=== PATIENT | female | born 1960 | race Caucasian/White ===

== ENCOUNTER 2017-02-25 07:57 | Inpatient (IN) ==
[2017-02-25] MEDS ORDERED: CeFAZolin Syr 2,000MG/20 ML 2,000 MG/20 ML SYRINGE IVPB ONE (08:19)
[2017-02-25] MEDS ORDERED: Lidocaine -MPF 1% 2 ML VIAL ID ONE (08:19)
[2017-02-25] MEDS ORDERED: *HR* Propofol 200 MG/20 ML VIAL IVP ONE (08:39)
[2017-02-25] MEDS ORDERED: *HR* FentaNYL (PF) 100 MCG/2 ML VIAL ONE (08:39)
[2017-02-25] MEDS ORDERED: Lidocaine -MPF 2% 2 ML VIAL ONE (08:40)
[2017-02-25] MEDS ORDERED: *HR* Succinylcholine 200 MG/10 ML VIAL IVP ONE ×2 (08:41→08:56)
[2017-02-25] MEDS ORDERED: *HR* Rocuronium Bromide 50 MG/5 ML VIAL ONE ×2 (08:41→08:56)
--- NOTE | 2017-02-25 08:45 | Anesthesia Evaluation PreOp ---
Date of Encounter: 02/25/17 Time of Encounter: 08:42 - Past History Planned Operation: Open repair hiatal hernia, aminata, mult hernia repairs Cardiac History: Denies any Significant Hx Pulmonary History: OTILIA Dx (does not use CPAP) LABOR RELATIONS OR PERSONNEL NEGOTIATOR History: Other (depression, migraines, hx uterine cancer) Other Medical History: GERD, Other (hx septic shock in 2015 - multiple organ failure (resolved)) Anesthesia History: No Prior Anesthetic Complications, Past Anesthesia (left TKR , right shoulder, hernia repair, EWELINA/BSO, colectomy/colostomy, colostomy reversal, EGD/colonoscopy, sinus surgery) Alcohol Use: occasionally Drug use: none Medications and Allergies Omeprazole [PriLOSEC] 40 mg PO BID 04/19/15 [History] Promethazine [Phenergan] 25 mg PO Q8H PRN 01/14/16 [History] Amitriptyline [Elavil] 10 mg PO HS 02/25/17 [History] Docusate [Colace] 02/25/17 [History] LORazepam [Ativan] 0.5 mg PO TID 02/25/17 [History] Magnesium Citrate [Citroma] 296 ml PO 02/25/17 [History] Magnesium Hydroxide [Milk of Magnesia] 5 ml PO PRN PRN 02/25/17 [History] Polyethylene Glycol 3350 [MiraLAX] 17 gm PO DAILY 02/25/17 [History] 3 Allergy/AdvReac Type Severity Reaction Status Date / Time No Known Allergies Allergy Verified 02/25/17 08:25 - Meds/Allergy Pre-op Review Medications Reviewed: Yes Allergies Reviewed: Yes Beta Blockers on Current Med List: No Anesthesia Results - Labs Laboratory Tests 02/16/17 02/16/17 16:25 16:25 WBC 8.1 Hgb 14.1 Hct 42.8 Plt Count 246 Sodium 139 Potassium 4.0 Chloride 101 Carbon Dioxide 28 BUN 11 Creatinine 0.88 Est GFR ( Amer) > 60 Est GFR (Non-Af Amer) > 60 BUN/Creatinine Ratio 13 - Imaging EKG: report reviewed, image reviewed (SR) Anesthesia Exam Last Vital Signs Temp 97.9 F 02/25/17 08:27 Pulse 66 02/25/17 08:27 Resp 18 02/25/17 08:27 BP 130/77 02/25/17 08:27 Pulse Ox 96 02/25/17 08:27 Weight: 98 kg NPO (# of Hours): > 8 hrs - HEENT Pupil (Motor): Pupils equal, EOMI Mallampati: III Teeth: Normal Oral Opening: Greater than 3 - LABOR RELATIONS OR PERSONNEL NEGOTIATOR LOC: Oriented LABOR RELATIONS OR PERSONNEL NEGOTIATOR Motor: Normal RUE, Normal LUE, Normal RLE, Normal LLE, Normal Face - Cardiac Rhythm: Regular Murmur: None - Pulmonary Breath Sounds: bilateral Clear Respiratory Effort: Symmetrical Anesthesia Assess/Plan ASA Score: 3 Modified Cale Scale for Level of Consciousness: Cooperative, oriented, and tranquil Anesthetic Plan: General Monitoring Plan: Standard Monitors Recovery Plan: PACU
[2017-02-25] MEDS: Ringers Solution, Lactated 1,000 ML IVC SCH ×2 (08:55→12:15)
[2017-02-25] MEDS ORDERED: *HR* Phenylephrine 10 MG/ML VIAL ONE (08:56)
[2017-02-25] MEDS ORDERED: Lidocaine -MPF 4% 5 ML AMPUL ONE (08:56)
[2017-02-25] MEDS ORDERED: *HR* Midazolam HCl 2 MG/2 ML VIAL ONE (08:56)
[2017-02-25] MEDS ORDERED: Bupivacaine/EPI 1:200k 0.25%PF 30 ML VIAL ONE (09:00)
--- NOTE | 2017-02-25 09:01 | History & Physical Report ---
Date of Encounter: 02/25/17 Time of Encounter: 09:00 24 Hour HP Update - Instructions Instructions: If the History and Physical is less than 30 days old and was completed prior to A.M. admission and or procedure and has NOT been updated on calendar day of procedure please complete this update prior to performing procedure. - Update Patient reports changes in Medical Condition: No Changes in examination, assessment, or condition: No Changes in Medication: No Preop tests/diagnostics Reviewed: Yes Surgery Remains Indicated: Yes Consent for Planned Operative Procedure(s) Verified: Yes - Pre-Operative Checklist Preoperative Checklist Indicated: Yes Prophylactic Antibiotic Ordered: Yes Home Medications Include Beta Anitha: No Is VTE Prophylaxis Indicated?: Yes
[2017-02-25] MEDS ORDERED: *HR* Remifentanil 2 MG VIAL IVP ONE (09:45)
[2017-02-25] MEDS ORDERED: *HR* Promethazine 25 MG/ML VIAL IVP PRN (09:55)
[2017-02-25] MEDS ORDERED: Dexamethasone 4 MG/ML VIAL IVP ONE (09:55)
[2017-02-25] MEDS ORDERED: Ondansetron 4 MG/2 ML VIAL IVP ONE (09:55)
[2017-02-25] MEDS ORDERED: Acetaminophen IV 1,000 MG/100 ML INFUS..BTL ONE (10:33)
[2017-02-25] MEDS ORDERED: Neostigmine Methylsulfate 3 MG/3 ML SYRINGE ONE (10:49)
[2017-02-25] MEDS ORDERED: Ketorolac 30 MG/ML VIAL ONE (10:50)
[2017-02-25] MEDS ORDERED: *HR* HYDROmorphone 2 MG/ML SYRINGE ONE (10:58)
--- NOTE | 2017-02-25 11:50 | Operative Note ---
Date of procedure: 02/25/17 Pre-op diagnosis: #1 paraesophageal hernia with #2 multiple incisional hernias Post-op diagnosis: same Procedure: #1 repair of paraesophageal hiatal hernia #2 Kendal fundoplication #3 repair of 4 incisional hernias (fenestrated midline) Anesthesia: SALOMÓN Surgeon: Augustine Mercedes Estimated blood loss (cc): 50 Specimen: Hernia sacs Condition: stable Disposition: PACU Procedure in Detail: After informed consent the patient was taken to the major operative suite and placed in supine position given adequate general endotracheal anesthesia. Gaviria catheter was placed. The abdomen was prepped and draped in sterile fashion utilizing ChloraPrep standard draping techniques. Timeout was taken. The patient was identified. I made a vertical midline incision from xiphoid to just below the umbilicus. I encountered 2 large hernias one above the umbilicus 1 just a low the umbilicus. The hernia sacs were dissected free from the surrounding subcutaneous tissue. I opened the hernia sacs there were no adhesions inside the sacs sacs were resected at the level of the fascia. There was a small strip of fascia between 2 hernias and this was divided. There is a third hernia very close inferiorly again the hernia sac was removed and the small strip of fascia was divided. There was a gap of about 4-5 cm of intact fascia many very small inferior hernia. I dissected the hernia sac free from the subcutaneous tissue and resected it and I closed the fascia with interrupted 0 Nurolon. Attention was then turned to the upper abdomen. There are some mild anterior abdominal wall adhesions that were divided with electrocautery. About one third of the stomach was in the chest. I was able to reduce the stomach out of the chest. There were significant adhesions between the greater curvature in the mediastinum. These will need to be addressed. I then mobilized the lateral segment of the left lobe of the liver and retract this inferiorly and toward the right. There were 2 layers of hernia sac anteriorly I divided both layers of hernia sac. The esophagus was positively identified at all times with a lighted bougie. I dissected the right sharon of the diaphragm. I turned my attention to the left crura of the diaphragm. This was the most complex dissection. There were extensive adhesions between the mediastinum and the hernia sac which was attached to the greater curvature. I made a meticulous dissection along the diaphragm completely exposing the left crura of the diaphragm. There were still extensive adhesions between the left sharon of the diaphragm in the esophagus attached the mediastinum to the backside of the greater curvature area these were all meticulously divided with careful anterior retraction of the esophagus. The esophagus was positively identified at all times. Once all the adhesions between the greater curvature and the mediastinum were divided the right and left crura of the diaphragm were easily identified. I repaired the hiatal hernia with 3 stitches of 2-0 Ethibond with pledgets. This gave an excellent technical result and perfect tension. The short gastric vessels of the greater curvature were then divided with 10 mm clips of the spleen side and Harmonic scalpel on the gastric side. There were greatly elongated from long- term prolapse in the mediastinum. Once the greater curvature was mobilized the greater curvature was brought behind the gastroesophageal junction and Kendal fundoplication was performed with 3 stitches of 2-0 Ethibond with pledgets. I placed 2 shoulder stitches one on the right and one on the left between the Kendal in the diaphragm to secure the wrap. This gave an excellent technical result area I then closed the midline with interrupted 0 Nurolon stitches using [place] tissue only. There was some tension in the fascia above the umbilicus however I felt this was acceptable for closure. Midline closure was completed all hernias were repaired only [place] tissue was used. The skin was reapproximated with interrupted Vicryl and skin clips.
[2017-02-25] MEDS: *HR* HYDROmorphone (PF) 1 MG/ML SYRINGE IVP PRN ×5 (12:24→22:34)
--- NOTE | 2017-02-25 12:51 | Anesthesia Evaluation Post Op ---
Date of Encounter: 02/25/17 Time of Encounter: 12:50 - Vital Signs Vital Signs: Vital Signs/O2 Sat/Glucose, Most Current Temp Pulse Resp BP Pulse Ox 02/25/17 12:41 98.6 F 60 12 139/79 95 02/25/17 12:31 98.6 F 77 15 141/78 96 02/25/17 12:21 80 11 148/84 97 02/25/17 12:11 80 14 144/76 97 02/25/17 12:01 98.6 F 82 16 142/77 92 - Lungs Lungs: Clear Ascult./Percussion - Airway Airway: Non-obstructed - Cardiovascular Regular Rate - Mental Status Mental Status: Alert & Oriented, Answers Appropriately - Pain Pain Scale: 0 - Nausea Vomiting Nausea Vomiting: Not Present - Hydration Hydration: Ice chips - Discharge PostOp Status: Transfer Patient to floor
[2017-02-25] MEDS: 0.9 % Sodium Chloride 1,000 ML IVC SCH (14:35)
[2017-02-25] MEDS: Ondansetron 4 MG/2 ML VIAL IVP PRN ×2 (14:35→22:34)
[2017-02-25] MEDS ORDERED: CeFAZolin Premix DUPLEX 2,000 MG/50 ML BAG IVPB SCH (16:00)
[2017-02-25] MEDS: CeFAZolin Premix DUPLEX 2,000 MG/50 ML BAG IVPB SCH ×2 (17:18→23:11)
[2017-02-25] MEDS: *HR* Heparin 5,000 UNIT/ML VIAL SQ SCH (17:28)
[2017-02-25] MEDS: *HR* Promethazine 25 MG/ML VIAL IVP PRN (18:01)
[2017-02-26] MEDS: *HR* HYDROmorphone (PF) 1 MG/ML SYRINGE IVP PRN ×6 (02:57→22:51)
[2017-02-26] MEDS: *HR* Promethazine 25 MG/ML VIAL IVP PRN ×3 (02:57→17:19)
[2017-02-26] MEDS: 0.9 % Sodium Chloride 1,000 ML IVC SCH ×2 (03:17→17:20)
[2017-02-26 05:00] LABS: Basophils % 0.1 %; Hematocrit 36.7 % (35.3-44.9); Immature Granulocytes % 0.4 % (0-4); Lymphocytes # 1.3 K/mcL (0.6-4.6); Lymphocytes % 6.9 %; Mean Corpuscular HGB Conc 32.7 g/dL (31.6-35.5); Mean Corpuscular Hemoglobin 29.9 pg (28.0-33.3); Mean Corpuscular Volume 91.3 fL (83.0-100.0); Mean Platelet Volume 12.7 fL (9.4-12.4); Monocytes # 1.3 K/mcL (0.0-1.3); Monocytes % 7.1 %; Neutrophils # 15.9 K/mcL (1.6-8.9); Platelet Count 202 K/mcL (140-400); Red Blood Count 4.02 M/mcL (3.82-4.97); Red Cell Distribution Width 13.2 % (11.5-14.5); Segmented Neutrophils % 85.5 %
[2017-02-26 05:12] LABS: BUN/Creatinine Ratio 21 (6-26); Blood Urea Nitrogen 15 mg/dL (7-20); Calcium 8.6 mg/dL (8.6-10.8); Carbon Dioxide 27 mEq/L (19-29); Chloride 106 mEq/L (98-109); Glucose 105 mg/dL (70-99); Osmolality,Calculated 289 (280-300); Potassium 4.3 mEq/L (3.5-4.5); Sodium 139 mEq/L (136-145); eGFR For African Americans > 60 (> 60); eGFR For Non-African Americans > 60 (> 60)
[2017-02-26] MEDS: *HR* Heparin 5,000 UNIT/ML VIAL SQ SCH ×2 (05:19→17:19)
[2017-02-26] MEDS: Ondansetron 4 MG/2 ML VIAL IVP PRN ×2 (08:10→14:47)
[2017-02-26] MEDS: Pantoprazole 40 MG VIAL IVP SCH (08:10)
--- NOTE | 2017-02-26 14:56 | General Surgery Progress Note ---
<Nancy Ford - Last Filed: 02/26/17 15:21> Date of Encounter: 02/26/17 Time of Encounter: 14:45 - Assessment and Plan (1) Paraesophageal hernia Current Visit: Yes Status: Acute POD #1 repair of paraesophageal hiatal hernia, Kendal fundoplication, repair of 4 incisional hernias (fenestrated midline) Limited clear liquids today (300ml/shift) IV fluids Supportive care and pain control- toradol added every 6 hours for the next 72 hours Abdominal binder Daily incision care IS every 1 hour while awake Out of bed to chair today PPI therapy daily Repeat am CBC (2) Incisional hernia Current Visit: Yes Status: Acute POD #1 repair of paraesophageal hiatal hernia, Kendal fundoplication, repair of 4 incisional hernias (fenestrated midline) Limited clear liquids today (300ml/shift) IV fluids Supportive care and pain control- toradol added every 6 hours for the next 72 hours Abdominal binder Daily incision care IS every 1 hour while awake Out of bed to chair today PPI therapy daily Repeat am CBC Qualifiers: Obstruction and gangrene presence: without obstruction or gangrene Qualified Code(s): K43.2 - Incisional hernia without obstruction or gangrene; K43.91 - Incisional hernia, without obstruction or gangrene (3) Nausea Current Visit: Yes Status: Acute Scheduled zofran every 4 hours Phenergan for nausea not controlled by zofran (4) DVT prophylaxis Current Visit: No Status: Acute Heparin 5000 units subcutaneous twice daily for DVT prophylaxis EPCDs to bilateral lower extremities for DVT prophylaxis Out of bed to chair today Subjective Patient reports: still having pain, no flatus, no bowel movement, nausea, afebrile Objective Vital Signs - Last 8 Hours Temp Pulse Resp BP Pulse Ox 02/26/17 12:38 98.0 F 98 14 126/78 96 02/26/17 07:18 98.0 F 94 14 123/78 95 Intake and Output 02/25/17 02/26/17 02/26/17 23:59 07:59 15:59 Intake Total 100 / 100 1000 / 1000 Output Total 0 / 0 500 / 500 Balance 100 / 100 500 / 500 Intake: IV Fluids 100 / 100 1000 / 1000 0.9 % Sodium Chloride 1,000 ML 1000 / 1000 @ 75 mls/hr IVC .[id number] [facility] Rx #:[id number] Ancef Premix DUPLEX 2,000 mg In 100 / 100 50 ml @ 100 mls/hr IVPB Q8HR [facility] Rx#:[id number] Oral 0 / 0 0 / 0 Output: Urine 0 / 0 Catheter 500 / 500 Other: Meal NPO NPO Blood Glucose* 106 93 75 - General physical appearance well developed, well nourished, moderate distress, moderate pain - Eyes normal ocular movement - ENT normal mucosa, atraumatic, normocephalic - Neck Neck exam: trachea midline - Respiratory normal respiratory effort, clear to auscultation - Cardiovascular Cardiovascular exam: Present: RRR - Abdomen Abdomen: Present: bowel sounds present (hypoactive), soft, tender (expected post -operative tenderness) - Incision Incision: Present: clean and dry, intact - Genitourinary other (gonzalez catheter to SD with clear, yellow urine noted) - Neurologic CN 2-12 grossly intact - Psychiatric oriented to time, oriented to person, oriented to place, speech is normal, memory intact - Labs 02/26/17 04:28 02/26/17 04:28 Diabetes panel 02/26/17 Range/Units 04:28 Sodium 139 (136-145) mEq/L Potassium 4.3 (3.5-4.5) mEq/L Chloride 106 (98-109) mEq/L Carbon Dioxide 27 (19-29) mEq/L BUN 15 (7-20) mg/dL Creatinine 0.72 (0.57-1.11) mg/dL Glucose 105 H (70-99) mg/dL Calcium 8.6 (8.6-10.8) mg/dL Calcium panel 02/26/17 Range/Units 04:28 Calcium 8.6 (8.6-10.8) mg/dL Pituitary panel 02/26/17 Range/Units 04:28 Sodium 139 (136-145) mEq/L Potassium 4.3 (3.5-4.5) mEq/L Chloride 106 (98-109) mEq/L Carbon Dioxide 27 (19-29) mEq/L BUN 15 (7-20) mg/dL Creatinine 0.72 (0.57-1.11) mg/dL Glucose 105 H (70-99) mg/dL Calcium 8.6 (8.6-10.8) mg/dL Adrenal panel 02/26/17 Range/Units 04:28 Sodium 139 (136-145) mEq/L Potassium 4.3 (3.5-4.5) mEq/L Chloride 106 (98-109) mEq/L Carbon Dioxide 27 (19-29) mEq/L BUN 15 (7-20) mg/dL Creatinine 0.72 (0.57-1.11) mg/dL Glucose 105 H (70-99) mg/dL Calcium 8.6 (8.6-10.8) mg/dL - VTE Documentation of Mechanical Device: Intermittent pneumatic compression device Consult Discharge Plan - Plan Referrals: Silvia Juarez, WALL MIRROR DEPARTMENT SUPERVISOR [Primary Care Provider] - - Attending Attestation For this encounter, I have reviewed the JUMPBASTING LINING BASTER or PA documentation, treatment plan, and medical decision making; and I have had face to face time with this patient. <Augustine Mercedes - Last Filed: 02/26/17 17:47> Date of Encounter: 02/26/17 Objective Vital Signs - Last 8 Hours Temp Pulse Resp BP Pulse Ox 02/26/17 12:38 98.0 F 98 14 126/78 96 Intake and Output 02/26/17 02/26/17 02/26/17 07:59 15:59 23:59 Intake Total 1000 / 1000 1000 / 1000 Output Total 500 / 500 450 / 450 Balance 500 / 500 -450 / -450 1000 / 1000 Intake: IV Fluids 1000 / 1000 1000 / 1000 0.9 % Sodium Chloride 1,000 ML 1000 / 1000 1000 / 1000 @ 75 mls/hr IVC .[id number] [facility] Rx #:[id number] Oral 0 / 0 Output: Catheter 500 / 500 450 / 450 Other: Meal NPO Blood Glucose* 93 75 - Labs 02/26/17 04:28 02/26/17 04:28 Diabetes panel 02/26/17 Range/Units 04:28 Sodium 139 (136-145) mEq/L Potassium 4.3 (3.5-4.5) mEq/L Chloride 106 (98-109) mEq/L Carbon Dioxide 27 (19-29) mEq/L BUN 15 (7-20) mg/dL Creatinine 0.72 (0.57-1.11) mg/dL Glucose 105 H (70-99) mg/dL Calcium 8.6 (8.6-10.8) mg/dL Calcium panel 02/26/17 Range/Units 04:28 Calcium 8.6 (8.6-10.8) mg/dL Pituitary panel 02/26/17 Range/Units 04:28 Sodium 139 (136-145) mEq/L Potassium 4.3 (3.5-4.5) mEq/L Chloride 106 (98-109) mEq/L Carbon Dioxide 27 (19-29) mEq/L BUN 15 (7-20) mg/dL Creatinine 0.72 (0.57-1.11) mg/dL Glucose 105 H (70-99) mg/dL Calcium 8.6 (8.6-10.8) mg/dL Adrenal panel 02/26/17 Range/Units 04:28 Sodium 139 (136-145) mEq/L Potassium 4.3 (3.5-4.5) mEq/L Chloride 106 (98-109) mEq/L Carbon Dioxide 27 (19-29) mEq/L BUN 15 (7-20) mg/dL Creatinine 0.72 (0.57-1.11) mg/dL Glucose 105 H (70-99) mg/dL Calcium 8.6 (8.6-10.8) mg/dL - Attending Attestation The patient is seen and evaluated on rounds. Her pain control is fair. She is not having any nausea. I am very pleased with her overall clinical course. She is not having any reflux. We will continue supportive care. Augustine Mercedes MD FACS
[2017-02-26] MEDS: Ondansetron 4 MG/2 ML VIAL IVP SCH ×3 (15:16→22:50)
[2017-02-26] MEDS: Ketorolac 15 MG/ML VIAL IVP SCH ×2 (19:58→23:47)
[2017-02-27] MEDS: *HR* HYDROmorphone (PF) 1 MG/ML SYRINGE IVP PRN ×4 (02:43→19:55)
[2017-02-27] MEDS: Ondansetron 4 MG/2 ML VIAL IVP SCH ×6 (02:49→22:45)
[2017-02-27 03:53] LABS: Basophils % 0.3 %; Eosinophils # 0.1 K/mcL (0.0-0.6); Eosinophils % 0.4 %; Hematocrit 32.4 % (35.3-44.9); Hemoglobin 10.6 g/dL (11.5-15.4); Immature Granulocytes % 0.3 % (0-4); Immature Platelets 8.9 % (1.1-6.1); Lymphocytes # 2.9 K/mcL (0.6-4.6); Lymphocytes % 21.3 %; Mean Corpuscular HGB Conc 32.7 g/dL (31.6-35.5); Mean Corpuscular Hemoglobin 30.4 pg (28.0-33.3); Mean Corpuscular Volume 92.8 fL (83.0-100.0); Mean Platelet Volume 12.1 fL (9.4-12.4); Monocytes # 1.2 K/mcL (0.0-1.3); Neutrophils # 9.2 K/mcL (1.6-8.9); Platelet Count 175 K/mcL (140-400); Red Blood Count 3.49 M/mcL (3.82-4.97); Red Cell Distribution Width 13.8 % (11.5-14.5); Segmented Neutrophils % 68.7 %
[2017-02-27] MEDS: 0.9 % Sodium Chloride 1,000 ML IVC SCH ×2 (05:54→18:52)
[2017-02-27] MEDS: Ketorolac 15 MG/ML VIAL IVP SCH ×4 (05:55→22:46)
[2017-02-27] MEDS: *HR* Heparin 5,000 UNIT/ML VIAL SQ SCH ×2 (05:56→18:04)
[2017-02-27] MEDS: *HR* Promethazine 25 MG/ML VIAL IVP PRN ×2 (08:51→17:09)
[2017-02-27] MEDS: Pantoprazole 40 MG VIAL IVP SCH (08:52)
[2017-02-27] MEDS ORDERED: *HR* LORazepam 0.5 MG TABLET PO PRN (10:48)
--- NOTE | 2017-02-27 10:54 | General Surgery Progress Note ---
Date of Encounter: 02/27/17 Time of Encounter: 10:50 - Assessment and Plan (1) Paraesophageal hernia Current Visit: Yes Status: Acute The patient has had open repair of paraesophageal hernia with Kendal fundoplication. She also had repair of 4 midline incisional hernias. Overall she feels poorly today but her benzodiazepine has not been reordered after surgery and I have reordered her home dose of Ativan. We will continue supportive care and clear liquid diet. Subjective Narrative: The patient feels poorly today I think this may be related to her lack of Ativan home dose. I have restarted those medicines orally. Her pain at the incision site is better than yesterday. She has good bowel sounds and is passing flatus. She is currently on clear liquids. Because she feels poorly we will maintain clear liquids today and likely advance her diet tomorrow. She is not having any reflux or chest pain. Objective Vital Signs - Last 8 Hours Temp Pulse Resp BP Pulse Ox 02/27/17 08:19 98.5 F 83 16 141/76 97 02/27/17 05:06 98.5 F 89 16 117/78 98 Intake and Output 02/26/17 02/27/17 02/27/17 23:59 07:59 15:59 Intake Total 1000 / 1000 1000 / 1000 Output Total 250 / 250 200 / 200 0 / 0 Balance 750 / 750 800 / 800 0 / 0 Intake: IV Fluids 1000 / 1000 1000 / 1000 0.9 % Sodium Chloride 1,000 ML 1000 / 1000 1000 / 1000 @ 75 mls/hr IVC .[id number] [facility] Rx #:[id number] Oral 0 / 0 0 / 0 Output: Catheter 250 / 250 200 / 200 0 / 0 Other: # Bowel Movements 0 Weight 97.998 kg Patient Weight 02/27/17 23:59 Weight 97.998 kg - General physical appearance well developed, well nourished, moderate pain, obese - Respiratory normal expansion, normal respiratory effort, clear to percussion, clear to auscultation - Cardiovascular Cardiovascular exam: Present: RRR, no murmurs/rubs/gallops - Abdomen Abdomen: Present: bowel sounds present, tender (Incision site) - Incision Incision: Present: clean and dry - Neurologic normal coordination, normal sensation - Psychiatric oriented to time, oriented to person, oriented to place, speech is normal, memory intact - Labs 02/27/17 03:46 02/26/17 04:28 - VTE Documentation of Mechanical Device: Intermittent pneumatic compression device Consult Discharge Plan - Plan Referrals: Silvia Juarez, CELL INSPECTOR [Primary Care Provider] -
[2017-02-28] MEDS: *HR* Promethazine 25 MG/ML VIAL IVP PRN (00:54)
[2017-02-28] MEDS: Ondansetron 4 MG/2 ML VIAL IVP SCH ×6 (03:28→22:56)
[2017-02-28] MEDS: *HR* HYDROmorphone (PF) 1 MG/ML SYRINGE IVP PRN ×4 (04:31→19:53)
[2017-02-28] MEDS: Ketorolac 15 MG/ML VIAL IVP SCH ×4 (06:10→23:00)
[2017-02-28] MEDS: *HR* Heparin 5,000 UNIT/ML VIAL SQ SCH ×2 (06:11→18:21)
[2017-02-28] MEDS: 0.9 % Sodium Chloride 1,000 ML IVC SCH ×2 (09:04→22:55)
[2017-02-28] MEDS: Pantoprazole 40 MG VIAL IVP SCH (09:05)
--- NOTE | 2017-02-28 11:21 | General Surgery Progress Note ---
Date of Encounter: 02/28/17 Time of Encounter: 11:00 - Assessment and Plan (1) Paraesophageal hernia Current Visit: Yes Status: Acute The patient has had open repair of paraesophageal hernia with Kendal fundoplication. She also had repair of 4 midline incisional hernias. Overall she feels poorly today but her benzodiazepine has not been reordered after surgery and I have reordered her home dose of Ativan. We will continue supportive care and clear liquid diet. 02/28/2017. She is having less abdominal pain and incisional pain compared to yesterday. She has no reflux. Overall she feels better. I think she is making improvement with addition of her home dose of Ativan area continue supportive care and pain management. We will continue clear liquid diet today. We will plan to go to full liquids tomorrow. Subjective Narrative: The patient has much less abdominal pain today. She has no reflux. She had a good deal of flatus yesterday but no bowel movement. We will plan to continue clear liquid diet and pain control. We will plan to advance her to full liquid diet tomorrow with possible discharge tomorrow or Wednesday. Objective Vital Signs - Last 8 Hours Temp Pulse Resp BP Pulse Ox 02/28/17 07:34 97.9 F 86 16 135/75 95 02/28/17 04:21 98.7 F 91 14 133/84 98 Intake and Output 02/27/17 02/28/17 02/28/17 23:59 07:59 15:59 Intake Total 1000 / 1000 1000 / 1000 Output Total 800 / 800 800 / 800 Balance 200 / 200 -800 / -800 1000 / 1000 Intake: IV Fluids 1000 / 1000 1000 / 1000 0.9 % Sodium Chloride 1,000 ML 1000 / 1000 1000 / 1000 @ 75 mls/hr IVC .[id number] [facility] Rx #:[id number] Output: Urine 250 / 250 Catheter 550 / 550 800 / 800 Other: # Bowel Movements 0 Weight 101.7 kg Patient Weight 02/28/17 23:59 Weight 101.7 kg - General physical appearance well developed, well nourished - ENT normal pinna, normal nares, normal mucosa, no hearing loss, no congestion - Respiratory normal expansion, normal respiratory effort, clear to percussion, clear to auscultation - Abdomen Abdomen: Present: bowel sounds present, soft, non tender - Incision Incision: Present: clean and dry - Neurologic normal coordination, normal sensation - Psychiatric oriented to time, oriented to person, oriented to place, speech is normal, memory intact - Labs 02/27/17 03:46 02/26/17 04:28 - VTE Documentation of Mechanical Device: Intermittent pneumatic compression device Consult Discharge Plan - Plan Referrals: Silvia Juarez, WELDING MACHINE OPERATOR ULTRASONIC [Primary Care Provider] -
[2017-03-01] MEDS: Ondansetron 4 MG/2 ML VIAL IVP SCH ×4 (03:55→14:35)
[2017-03-01] MEDS: Ketorolac 15 MG/ML VIAL IVP SCH ×2 (05:13→12:32)
[2017-03-01] MEDS: *HR* Heparin 5,000 UNIT/ML VIAL SQ SCH (05:13)
[2017-03-01] MEDS: Pantoprazole 40 MG VIAL IVP SCH (07:51)
[2017-03-01] MEDS: *HR* HYDROmorphone (PF) 1 MG/ML SYRINGE IVP PRN (07:51)
[2017-03-01] MEDS ORDERED: *HR* OxyCODONE/APAP 5/325 TABLET PO PRN (10:13)
--- NOTE | 2017-03-01 10:20 | Discharge Summary ---
Date of Encounter: 03/01/17 Time of Encounter: 10:17 - Discharge Diagnosis (1) Status post Kendal fundoplication Priority: Primary Status: Acute (2) GERD (gastroesophageal reflux disease) Priority: Secondary Status: Resolved Qualifiers: Esophagitis presence: esophagitis presence not specified Qualified Code(s) : K21.9 - Gastro-esophageal reflux disease without esophagitis (3) Paraesophageal hernia Priority: Secondary Status: Resolved (4) Incisional hernia Priority: Primary Status: Resolved Qualifiers: Obstruction and gangrene presence: without obstruction or gangrene Qualified Code(s): K43.2 - Incisional hernia without obstruction or gangrene; K43.91 - Incisional hernia, without obstruction or gangrene - Discharge Medications Prescriptions: Ondansetron ODT [Zofran ODT] 4 mg SL Q4HR PRN #15 tab.rapdis PRN Reason: Nausea OxyCODONE/APAP 5/325 [Percocet 5/325 MG] 1 each PO Q6HR PRN #28 tablet PRN Reason: Pain Docusate [Colace] 100 mg PO BID #30 capsule Ibuprofen 800 mg PO Q8H PRN #30 tablet PRN Reason: Postsurgical pain Home Medications: Omeprazole [PriLOSEC] 40 mg PO BID 04/19/15 [History] Promethazine [Phenergan] 25 mg PO Q8H PRN 01/14/16 [History] Amitriptyline [Elavil] 10 mg PO HS 02/25/17 [History] Docusate [Colace] 200 mg PO DAILY 02/25/17 [History] LORazepam [Ativan] 0.5 mg PO TID PRN 02/25/17 [History] Polyethylene Glycol 3350 [MiraLAX] 17 gm PO DAILY 02/25/17 [History] Docusate [Colace] 100 mg PO BID #30 capsule 03/01/17 [Rx] Ibuprofen 800 mg PO Q8H PRN #30 tablet 03/01/17 [Rx] Ondansetron ODT [Zofran ODT] 4 mg SL Q4HR PRN #15 tab.rapdis 03/01/17 [Rx] OxyCODONE/APAP 5/325 [Percocet 5/325 MG] 1 each PO Q6HR PRN #28 tablet 03/01/17 [Rx] Allergies/Adverse Reactions: 3 Allergy/AdvReac Type Severity Reaction Status Date / Time No Known Allergies Allergy Verified 02/25/17 08:25 General Surgery Exam Initial Vital Signs Temp Pulse Resp BP Pulse Ox 97.9 F 66 18 130/77 96 02/25/17 08:27 02/25/17 08:27 02/25/17 08:27 02/25/17 08:27 02/25/17 08:27 - Additional Findings VITAL SIGNS: Reviewed. GENERAL: In no apparent distress. HEENT: atraumatic, normocephalic, normal occular movements, hearing grossly intact. Oropharynx WNL NECK: No adenopathy, no JVD. CHEST: Chest with clear breath sounds bilaterally. No wheezes, rales, or rhonchi. CARDIAC: Regular rate and rhythm. S1 and S2, without murmurs, gallops, or rubs. VASCULAR: No Edema. Peripheral pulses normal and equal in all extremities. ABDOMEN: midline Incisions are clean, dry, and intact. There is a small amount ecchymosis visible. There is no S/S of infection noted. Active bowel sounds in all 4 quadrants. Expected postoperative tenderness noted. MUSCULOSKELETAL: no focal deficits noted. NEUROLOGIC EXAM: Alert and oriented x 3. No focal sensory or strength deficits. Speech normal. Follows commands. PSYCHIATRIC: A&O x3. Mood normal. SKIN: No rash or lesions. Date of admission: 02/25/17 13:35 Primary care physician: Silvia Juarez CNP Consults: 02/28/17 09:30 Consult to Invasive Line Access Team [CONS] Routine Reason for Consult: poor vasuclar access Line Type: EPIV Discharging clinician: Augustine Myers) Anticipated date of discharge: 03/01/17 - Patient Status Disposition: Home, Self-Care Condition: Good Functional capacity at discharge: independent ambulation Overall status at discharge: patient is progressing back to baseline - Discharge Instructions Instructions: Adult Open Kendal Fundoplication (DC) Follow Up With: Silvia Juarez CNP [Primary Care Provider] - Augustine Mercedes MD [Partnered Physician] - 03/10/17 4:05 pm Additional Instructions: General Instructions After Kendal Surgery 1. No pushing, pulling, or lifting greater than 15 lbs for SIX weeks. 2. You may shower beginning today, but no tub baths, soaking, or swimming for 2 weeks. 3. You may resume driving when you are off narcotics and are safe to react in a car. 4. Take ibuprofen every 8 hours. If this does not relieve your discomfort you may take Percocet as directed. Take narcotics as directed. Do not take more narcotics then directed and do not share your narcotics with any other person. Do not drink alcohol while on narcotics. 5. Take stool softeners (Colace) and/or a water based laxative (Miramax) while taking narcotics. You may hold for loose stools. 6. Report any fevers greater than 100.5F, increase abdominal discomfort, drainage that looks like pus, increased redness or pain at the surgical site, or any vomiting. 7. Report any pain in the calves, shortness of breath, or rapid heartbeat. 8. Continue to take your heartburn medications until directed to stop. Do not stop them abruptly as this can cause symptoms of reflux. 9. Do not drink alcohol or carbonated beverages. 10. Do not deviate from the recommended Kendal diet below. Doing so can affect your outcomes. [facility] Diet After Kendal Fundoplication Surgery This diet information is for patients who have recently had Kendal Fundoplication Surgery to correct reflux disease or to repair various types of hernias, such as hiatal hernia and intrathoracic stomach. This diet may also be used for other gastrointestinal surgeries, such as Heller myotomy and repair of achalasia. The diet will help control diarrhea, excess gas and swallowing problems, which may occur after this type of surgery. Important Steps to Keep Your Stomach From Stretching Eat small, frequent meals (six to eight per day). This will help you consume the majority of the nutrients you need without causing your stomach to feel full or distended. Drinking large amounts of fluids with meals can stretch your stomach. You may drink fluids between meals as often as you like, but limit fluids to 1/2 cup (4 fluid ounces) with meals and one cup (8 fluid ounces) with snacks. Sit upright while eating, and stay upright for 30 minutes after each meal. [place] can help food move through your digestive tract. Do not lie down after eating. Sit upright for 2 hours after your last meal or snack of the day. Eat very slowly. Take your time when eating. Take small bites and chew your food well to boilermaker helper in swallowing and digestion. Avoid crusty breads and sticky, gummy foods, such as bananas, fresh doughy breads, rolls and doughnuts. These types of foods become sticky and difficult to swallow. Toasted breads tend to be better tolerated. Lastly, if you eat sweets, consume them at the end of your meal to avoid a group of symptoms referred to as dumping syndrome. This describes the rapid emptying of foods from the stomach to the small intestine. Sweetened beverages, candy and desserts move more rapidly and dump quickly into the intestines. This can cause symptoms of nausea, weakness, cold sweats, cramps, diarrhea and dizzy spells. Important Steps to Avoid Gas Do not drink through a straw, chew gum, or chew tobacco. These actions cause you to swallow air, which will produce excess gas in your stomach. Chew with your mouth closed and chew your food thoroughly. Avoid foods that cause stomach gas and distention. The foods include corn, dried beans, peas, lentils, onions, broccoli, cauliflower, and any food item from the cabbage family. Do not drink carbonated drinks, alcohol, citrus, or tomato products. What Will I Be Able To Eat and Drink After Surgery After Kendal Fundoplication Surgery, your diet will be advanced slowly by your surgeon. Generally, you will be on a thin/clear liquid diet for the first 10 days. Then you will advance to the full liquid diet for 4 days and eventually to a Kendal soft diet for 7 days. After any surgery, protein consumption is important for healing. To get enough protein, drink 3-4 [place] Instant Breakfast, Ensure, or equivalent daily. Reminder: Carbonated beverages (such as sodas, energy drinks, flavored carbonated water), and alcohol are not permitted for the 1st 6 to 8 weeks after surgery. After this time you may attempt to reintroduce them in small amounts. Please note: Dairy products such as milk, ice cream, and pudding may cause diarrhea in some people after surgery. You may need to avoid milk products. If so you may substitute them with lactose free beverages, such as soy, rice, lactate, or almond milk. Please be aware that each patient's tolerance to food is different. Your doctor will advance your diet depending on how well you progress after surgery. Thin Liquid Diet The first diet after Kendal Fundoplication Surgery is the thin liquids diet. Follow this diet for postoperative days 1-10 02/26/2017- 03/07/2017. Thin liquids include: Apple, Cranberry, or Grape Juice (no citrus juice) Chicken Broth Beef Broth Flavored Gelatin (Jell-O) Decaffeinated Tea or Coffee Popsicles or French Ice Caffeinated Beverages Will Be Permitted Based upon Tolerance and at a later date Dairy if tolerated Thin Milkshakes (strawberry or vanilla flavored- No chocolate) Drink 3-4 [place] instant breakfast, Ensure, or equivalent daily. May be mixed with dairy for thin milkshakes Full Liquid Diet Follow this diet for postoperative days 11-14 03/08/2017 - 03/11/2017. Full liquid diet includes anything in the thin liquid diet plus: Milk: Dairy, Soy, Rice, and [place] (No Chocolate) Cream of Wheat, Cream of Rice, Grits Strained Creamed Soups (No Tomato or Broccoli) Vanilla and [place] Flavored Ice Cream Sherbet Vanilla and Butterscotch Pudding (No Chocolate or Coconut) Continue 3-4 [place] Instant Breakfast, Ensure, or an Equivalent Daily. May be mixed with Dairy for Thin Milkshakes. Kendal Soft Diet Follow this diet for postoperative days 15-20 03/12/2017 - 03/18/2017. (If you are consuming enough protein, you may stop the protein supplements). Please note: You will need extra fluids throughout the day to meet your fluid needs. - Diet and Activity Activity: increase activity as tolerated Diet: other (See [facility] diet handout) - Hospital Course Hospital course: Ms. Clark is a 56 year old female who presented on 02/25/2017 for an elective open repair of the parasitology a hiatal hernia, Kendal fundoplication, and repair of [address] Mercedes. Her hospital course has been uncomplicated. She has had no reflux. Her discomfort is controlled on the current regimen. Her vital signs are stable and she has afebrile. She has ambulating and voiding without difficulty. She is tolerating her thin liquid diet without nausea or vomiting. We will begin discharge planning to home with a follow-up in the office on March 10, [address] Mercedes. - Time Spent with Patient Total time spent providing and/or coordinating discharge services: Labs on day of discharge: Labs from last 24 hours 02/28/17 20:17 POC Glucose 80
[2017-03-01 10:43] LABS: Basophils % 0.4 %; Eosinophils # 0.3 K/mcL (0.0-0.6); Hematocrit 29.6 % (35.3-44.9); Hemoglobin 9.7 g/dL (11.5-15.4); Immature Granulocytes % 0.4 % (0-4); Lymphocytes # 1.9 K/mcL (0.6-4.6); Lymphocytes % 27.4 %; Mean Corpuscular HGB Conc 32.8 g/dL (31.6-35.5); Mean Corpuscular Hemoglobin 29.8 pg (28.0-33.3); Mean Corpuscular Volume 90.8 fL (83.0-100.0); Mean Platelet Volume 11.4 fL (9.4-12.4); Monocytes # 0.6 K/mcL (0.0-1.3); Monocytes % 8.8 %; Neutrophils # 4.2 K/mcL (1.6-8.9); Platelet Count 171 K/mcL (140-400); Red Blood Count 3.26 M/mcL (3.82-4.97); Red Cell Distribution Width 12.7 % (11.5-14.5)
[2017-03-01] MEDS ORDERED: *HR* HYDROmorphone (PF) 1 MG/ML SYRINGE IVP PRN (10:48)
[2017-03-01 10:51] VITALS: BP 124/82
[2017-03-01 10:56] LABS: BUN/Creatinine Ratio 10 (6-26); Blood Urea Nitrogen 6 mg/dL (7-20); Carbon Dioxide 30 mEq/L (19-29); Chloride 104 mEq/L (98-109); Glucose 118 mg/dL (70-99); Osmolality,Calculated 287 (280-300); Potassium 3.2 mEq/L (3.5-4.5); Sodium 139 mEq/L (136-145); eGFR For African Americans > 60 (> 60); eGFR For Non-African Americans > 60 (> 60)
[2017-03-01] MEDS ORDERED: *HR* HYDROmorphone (PF) 1 MG/ML SYRINGE IVP SCH (12:00)
[2017-03-01] MEDS ORDERED: FLUARIX QUAD 2017-18 36MOS UP/PF 0.5 ML SYRINGE IM ONE (13:55)
== END 2017-03-01 15:05 | disposition home or self-care (01) | DRG 328 ==
LOC: SAMDAY 07:57 → 3ANU 13:35
PROVIDERS: ADMIT Surgery; ATTEND Surgery